=== PATIENT | female | born 1940 | race Two or more races ===

== ENCOUNTER 2025-05-07 21:11 | Inpatient (IN) | payer MEDICAID, SELFPAY ==
--- NOTE | 2025-05-07 21:15 | XR_ITS ---
Examination: PA chest single view TECHNIQUE: Upright PA chest single view Date and time: May 07, 2025 2145 hours INDICATIONS: Shortness of breath and leg edema and beginning 3 weeks ago. FINDINGS: Mild enlargement cardiac contour Moderate vascular congestion Reduced inspiratory effort The osseous structures are intact IMPRESSION: Moderate vascular congestion
--- NOTE | 2025-05-07 21:15 | EKG_ITS ---
[facility] Test Date: 2025-05-07 Pat Name: MAIDA DAVIS Department: Room: - Gender: Female [employer]: : 1940 Requested By: Nini Sanderson Order Number: [id number] Reading MD: Nini Sanderson Measurements Intervals [place] Rate: 75 P: 50 IA: 173 QRS: 58 QRSD: 74 T: -62 QT: 383 QTc: 430 Interpretive Statements SINUS RHYTHM INDETERMINATE AXIS MODERATE T-WAVE ABNORMALITY, CONSIDER ANTEROLATERAL ISCHEMIA [-0.1+ mV T-WAVE IN V3-V6] MODERATE T-WAVE ABNORMALITY, CONSIDER INFERIOR ISCHEMIA [-0.1+ mV T-WAVE IN II/aVF] No previous ECG available for comparison /store/S0/[id number].pdf
--- NOTE | 2025-05-07 21:17 | EDNOTE_ITS ---
ED SOB =RME/HPI General Chief Complaint: Shortness of Breath/Dyspnea Stated Complaint: SOB WITH EXCERTION, BLE SWELLING Time Seen by Provider: 05/07/25 21:15 Source: patient Arrival date/time: 05/07/25 21:11 Limitations: no limitations RME / HPI RME / HPI Narrative: Here today with a 3 week history of lower leg edema and excertional dyspnea. Has a history of HTN and DM. Has no fevers or chills. No chest pain or palpitations. No abdominal pain, nausea, vomiting. No near syncopal episodes. She has no history of CHF. Related Data Allergies Allergy/AdvReac Type Severity Reaction Status Date / Time No Known Allergies Allergy Verified 05/07/25 21:14 Review of Systems Review of Systems Systems Reviewed: All systems reviewed, normal except as documented ED Exam General Limitations: Present no limitations General appearance: Present alert and in no apparent distress Head Head exam: Present atraumatic Eye Eye exam: Present normal appearance, PERRL and EOMI ENT ENT exam: Present normal exam, normal oropharynx and mucous membranes moist Neck Neck exam: Present normal inspection, full ROM and trachea midline Chest Chest inspection: Present normal inspection and symmetric chest wall rise Respiratory Respiratory exam: Present normal lung sounds bilaterally; Absent respiratory distress, wheezes or accessory muscle use Cardiovascular Cardiovascular exam: Present regular rate, normal rhythm and normal heart sounds Abdominal Exam Abdominal exam: Present soft and normal bowel sounds Extremities Exam Extremities exam: Present normal inspection, full ROM and pedal edema (+2 pretibial edema ) Back Exam Back exam: Present normal inspection and full ROM Neurological Exam Neurological exam: Present alert and oriented X3 Psychiatric Psychiatric exam: Present normal affect and normal mood Skin Skin exam: Present warm, dry, intact and normal color Course Quality Measures none Orders Category Date Time Status COVID-19 Screening Questionnaire NOW Care 05/07/25 23:04 Active Decision to Admit X1 Care 05/07/25 23:04 Active EKG (ED ONLY) *Do not use* NOW Care 05/07/25 21:16 Completed IV [Insert IV] STAT Care 05/07/25 21:44 Active EKG (ED Only) Stat Exams 05/07/25 21:15 Draft XR chest 1V Stat Exams 05/07/25 21:15 Completed BNP [B-Type Natriuretic Peptide] Stat Lab 05/07/25 22:30 Completed CBC Stat Lab 05/07/25 22:30 Completed CMP [Comprehensive Metabolic Panel] Stat Lab 05/07/25 22:30 Completed Magnesium Stat Lab 05/07/25 22:30 Completed Troponin I Stat Lab 05/07/25 22:30 Completed Furosemide [Lasix Inj] Med 05/07/25 23:02 Discontinued 40 mg IVP X1 ONE Oxygen Delivery NOW RT 05/07/25 22:48 Completed Vital Signs Vital signs: Vital Signs Temperature 98.8 F 05/07/25 21:37 Pulse Rate 76 05/07/25 21:37 Respiratory Rate 22 H 05/07/25 21:37 Blood Pressure 169/91 H 05/07/25 21:37 Pulse Oximetry (%) 90 L 05/07/25 21:37 Oxygen Delivery Method Room Air 05/07/25 21:37 Shortness of Breath / Dyspnea MDM Narrative MDM Narrative:: Here today with a 3 week history of lower leg edema and excertional dyspnea. Has a history of HTN and DM. Has no fevers or chills. No chest pain or palpitations. No abdominal pain, nausea, vomiting. No near syncopal episodes. She has no history of CHF. On exam, lung tones are clear bilaterally. Patient has +2, pretibial edema bilaterally. Warm patient checked in, she was found to have oxygen level at 90% while at rest. She was given O2, 3 L, by nasal cannula and her oxygen improved to 95%. BNP is elevated at 1535 and CXR revelas vascular congestion. Lasix 40 mg and admission is requested. Discussed with attending ER physician and our hospitalist team. Patient data External records reviewed:: None Clinical information provided by:: patient and family Social determinants that could affect healthcare access:: none Patient has the following chronic illnesses:: Hypertension, diabetes How is presenting disease/condition affected by chronic disease/condition?: uneffected by Evaluation data The following diagnostics were reviewed and interpreted by me:: EKG tracing(s) (Normal sinus rhythm at [address] changes. There are inverted T waves diffusely, no prior EKG for comparison) Lab and/or radiology exams considered but not ordered:: n/a Interpretation Summary: BNP is elevated. Chest reveals vascular congestion Medications / Prescriptions Medications or Prescriptions considered but not ordered:: n/a Medication administrations:: Medication Administration History Discontinued Medications Furosemide (Furosemide Inj 10 Mg/Ml Vial 2 Ml) 40 mg IVP X1 ONE Stop: 05/07/25 23:03 Last Admin: 05/07/25 23:16 Dose: 40 mg Documented By: DELONTE see above Consultations Consultation(s) initiated? (list below): No Diagnosis Shortness of Breath Differential Diagnosis: congestive heart failure, community acquired pneumonia and asthma with exacerbation Most likely diagnosis given after review of the tests above:: chf Admission Indicated Admission indicated?: indicated Admission Request Was there a request for admission?: Yes Admission Attestation Admission request attestation: Discussed case with [] from Hospitalist service regarding admission. Discussed patients ED course, exam findings, labs, and radiology results. The Hospitalist [agrees,declines] to accept the patient for admission. Disposition Plan Disposition Plan: Admit Discharge Plan Plan Patient Disposition: Admit Acute Care w/in Hospital Patient condition on transfer: Stable Prescriptions/Referrals Referrals: Farhat Romero PA-C [Primary Care Provider] - In 1 week Problem List Clinical Impression: CHF (congestive heart failure) Patient/Caregiver Discharge Instructions Print Language: [place] Stand Alone Forms: Carmen Award Info., Patient Portal Info Letter
[2025-05-07 21:37] VITALS: BP 169/91; PULSE 76; RESP 22; TEMP 37.1; O2SAT 90
[2025-05-07 21:41] VITALS: O2SAT 95
[2025-05-07 22:38] LABS: Basophils # (Auto) 0.0 Thou/mm3 (0.0-0.2); Basophils % (Auto) 0 % (0-2.5); Eosinophils # (Auto) 0.2 Thou/mm3 (0.0-0.5); Eosinophils % (Auto) 3 % (0-10); Hematocrit 41.7 % (36.0-46.0); Hemoglobin 13.5 g/dL (12.0-16.0); Immature Granulocytes Auto 0.03 Thou/mm3 (0.00-0.00); Lymphocytes # (Auto) 1.7 Thou/mm3 (1.0-4.8); Lymphocytes % (Auto) 22 % (10-50); Mean Corpuscular HGB Conc 32.4 g/dl (31.0-37.0); Mean Corpuscular Hemoglobin 28.4 pg (25.0-35.0); Mean Corpuscular Volume 88 fL (80-100); Monocytes # (Auto) 0.7 Thou/mm3 (0.0-0.8); Monocytes % (Auto) 9 % (0-12); Neutrophils # (Auto) 5.0 Thou/mm3 (1.8-7.7); Neutrophils % (Auto) 66 % (37-80); Nucleated Red Blood Cell # 0.00 Thou/mm3 (0.00-0.00); Nucleated Red Blood Cell % 0 /100 WBC (0); Platelet Count 131 Thou/mm3 (140-440); RDW Standard Deviation 52.7 fL (36.4-46.3); Red Blood Count 4.75 Miln/mm3 (4.00-5.20); White Blood Count 7.7 Thou/mm3 (3.6-11.0)
[2025-05-07 22:41] VITALS: RESP 90; O2SAT 92
[2025-05-07 22:56] LABS: Alanine Aminotransferase 45 U/L (10-49); Albumin, Serum 3.6 gm/dL (3.4-4.8); Albumin/Globulin Ratio 1.7 (1.2-2.2); Alkaline Phosphatase 75 U/L (46-116); Anion Gap 10 (7-16); Aspartate Amino Transferase 20 U/L (0-34); B-Type Natriuretic Peptide 1535 pg/mL (0-100); BUN/Creatinine Ratio 19 Ratio (12-20); Bilirubin,Total 0.6 mg/dL (0.3-1.2); Blood Urea Nitrogen 19 mg/dL (9-23); Calcium 9.0 mg/dL (8.3-10.6); Calcium (Corrected) 9.3 mg/dL (8.5-10.1); Carbon Dioxide 27.3 mMol/L (20.0-31.0); Chloride 111 mMol/L (98-107); Creatinine (Component) 1.0 mg/dL (0.6-1.3); Globulin 2.1 gm/dL (2.3-3.5); Glucose 126 mg/dL (74-106); Magnesium 1.5 mg/dL (1.6-2.6); Osmolality,Calculated 298 (275-295); Potassium 4.1 mMol/L (3.4-5.1); Sodium 148 mMol/L (136-145); Total Protein 5.7 gm/dL (5.7-8.2); Troponin I 0.020 ng/mL (0.0-0.045); eGFR 56 See Note
[2025-05-07 23:16] VITALS: BP 182/98; PULSE 78
[2025-05-07] MEDS: FUROSEMIDE INJ 10 MG/ML VIAL 2 ML 40 MG IVP (23:16)
--- NOTE | 2025-05-07 23:21 | ECHO_ITS ---
Transthoracic Echo Report Ht (in): 60 Wt (lb): 192 Exam Location: Echo Lab Status: Emergency Technical Customer Support Specialist: Laura Covarrubias Indications: Procedure Performed: BP: 148 / 65 HR: 77 Technical Quality: Technically difficult study MEASUREMENTS (Male / Female) Normal Values 2D ECHO LV Diastolic Diameter PLAX 5.0 cm 4.2 - 5.9 / 3.9 - 5.3 cm LV Systolic Diameter PLAX 3.6 cm IVS Diastolic Thickness 0.9 cm 0.6 - 1.0 / 0.6 - 0.9 cm LVPW Diastolic Thickness 0.9 cm 0.6 - 1.0 / 0.6 - 0.9 cm LV Relative Wall Thickness 0.4 LVOT Diameter 2.1 cm Aortic Root Diameter 2.7 cm LA Volume Index 13.1 cm?/m? 16 - 28 cm?/m? Ascending Aorta Diameter 3.2 cm M-MODE Aortic Root Diameter MM 2.8 cm AV Cusp Separation MM 1.9 cm DOPPLER AV Peak Velocity 99.5 cm/s AV Peak Gradient 4.0 mmHg AV Mean Gradient 3.0 mmHg AV Velocity Time Integral 24.3 cm LVOT Peak Velocity 104.5 cm/s LVOT Peak Gradient 4.4 mmHg LVOT Velocity Time Integral 26.3 cm LVOT Cardiac Index 3567.4 cm?/min?m? AV Area Cont Eq vti 3.7 cm? AV Area Cont Eq pk 3.6 cm? MV Area PHT 2.6 cm? Mitral E Point Velocity 44.1 cm/s Mitral A Point Velocity 81.5 cm/s Mitral E to A Ratio 0.5 LV E' Lateral Velocity 6.2 cm/s Mitral E to LV E' Lateral Ratio 7.1 LV E' Septal Velocity 5.4 cm/s Mitral E to LV E' Septal Ratio 8.1 TR Peak Velocity 383.0 cm/s TR Peak Gradient 58.7 mmHg PV Peak Velocity 99.1 cm/s PV Peak Gradient 3.9 mmHg FINDINGS Left Ventricle Normal left ventricular size, wall thickness, systolic function with no obvious regional wall motion abnormalities.there is grade I diastolic dysfunction of the left ventricle (impaired relaxation pattern). The ejection fraction is visually estimated at 55 %. IVS flattened in systole and diastole consistent with RV pressure and volume overload. Right Ventricle The right ventricular size is mildy increased. The right ventricular systolic function is mildly decreased. The estimated right ventricular systolic pressure, 64 mmHg. RAP 5. Left Atrium The left atrium is normal by two-dimensional, color flow and Doppler imaging with no structural abnormalities, no thrombus formation present. Right Atrium The right atrium is normal by two-dimensional imaging, color flow and Doppler imaging with no structural abnormalities, no thrombus formation present. Atrial Septum The interatrial septum appears normal with no evidence of a shunt. Aorta The aorta is normal by two-dimensional, color flow and Doppler interrogation. Mitral Valve The mitral valve is normal by two-dimensional, color flow and Doppler interrogation. There is no significant mitral valve regurgitation, stenosis or prolapse. Aortic Valve The aortic valve is trileaflet and normal by two-dimensional, color flow and Doppler interrogation. There is no significant aortic valve regurgitation. Tricuspid Valve The tricuspid valve is normal by two-dimensional, color flow and Doppler interrogation. There is moderate tricuspid regurgitation. Pulmonic Valve Mild pulmonic valve regurgitation. Vessels The pulmonary artery appears normal. The inferior vena cava pulmonary and hepatic veins appear normal. Pericardium There is a tiny, hemodynamically insignificant pericardial effusion. CONCLUSIONS Indication: CHF Normal left ventricular size and wall thickness. Grade I diastolic dysfunction. Estimated at 60-65%. IVS flattened in systole and diastole in short axis consistent with RV pressure and volume overload. Mildly dilated RA and RV. Mildly decreased and low normal RV function. RVSP moderate to severely elevated around 70 to 75 mmHg. Moderate TR Mild aortic valve sclerosis without stenosis. Mild PI. Trace MR. Mild MAC. IVC dilated. Trace to small pericardial effusion without any evidence of cardiac tamponade Abdirizak Mora (Electronically Signed) Final Date: 09 May 2025 19:52
--- NOTE | 2025-05-07 23:23 | ESHP_ITS ---
Documentation for date of: 05/07/25 HPI History of Present Illness Chief complaint: Dyspnea on exertion History of present illness: 84-year-old female with past medical history of hypertension presenting to the ED on 05/07 with increased shortness of breath and dyspnea on exertion. Patient's daughter is bedside and provided some history. Patient apparently has been having difficulty ambulating for 3 to 4 weeks secondary to increased shortness of breath. She has not seen a PCP for this concern. Patient otherwise denies having any concerning cardiac symptoms such as chest pain/tightness, palpitations, orthopnea, paroxysmal nocturnal dyspnea but she does have lower extremity edema. Medical history: As stated above Surgical history: Denies Allergies: NKDA Medications: Pending med rec Family history: Denies any pertinent family history Social history: Patient lives in [place] with daughter, denies any alcohol, tobacco or illicit drug use, ambulates normally with a walker ROS: All 12 systems assessed and the patient denies unless otherwise stated in HPI In the ED, patient presented hypertensive 169/91, heart rate of 76, respiratory rate of 22, afebrile satting 90 on room air initially but then requiring 2 L supplemental oxygen to sat 92%. Pertinent lab findings included WBC of 7.7, hemoglobin 13.5, sodium 148, chloride 111, magnesium 1.5, glucose 126, AST 20, ALT 45, alk phos 75, troponin 0.020, BNP 1535. Chest x-ray showed mild enlargement of the cardiac contour with moderate vascular congestion and EKG showed normal sinus rhythm with some T wave inversions noted on anterior and septal leads. Patient will be admitted for new congestive heart failure and will be treated with IV diuretics and echo cardiogram. Exam Vital Signs Temp Pulse Resp BP Pulse Ox O2 Del Method O2 Flow Rate 98.8 F 78 22 H 182/98 H 92 L Nasal Cannula 2 05/07/25 21:37 05/07/25 23:16 05/07/25 21:37 05/07/25 23:16 05/07/25 22:41 05/07/25 21:41 05/07/25 22:41 Narrative Exam Physical Exam: GENERAL: Awake, answering questions appropriately in [place], appears stated age, morbidly obese HEENT: NC/AT. Moist mucosa. PERRLA/EOMI. CARDIO: Heart RRR, Grade II/ systolic ejection murmur, no JVD. PULM: No coughing or visible SOB. Lungs CTA B/L. GI: Abdomen soft, mildly tender to palpation in epigastric region, no rigidity or guarding. [place] apparent SKIN/MSK/EXT: +2 pitting edema localized to bilateral feet. No wounds/discoloration/rashes//amputations noted. +Pedal pulses present B/L. NEURO: Oriented x3, Moves extremities x4, no focal neurologic deficits noted Results: Labs 05/07/25 22:30 05/07/25 22:30 Labs: Short CBC 05/07/25 Range/Units 22:30 WBC 7.7 (3.6-11.0) Thou/mm3 Hgb 13.5 (12.0-16.0) g/dL Hct 41.7 (36.0-46.0) % Plt Count 131 L (140-440) Thou/mm3 BMP 05/07/25 22:30 Sodium 148 H Potassium 4.1 Chloride 111 H Carbon Dioxide 27.3 BUN 19 Creatinine 1.0 Glucose 126 H Calcium 9.0 Cardiac Enzymes 05/07/25 Range/Units 22:30 Troponin I 0.020 (0.0-0.045) ng/mL Liver Function 05/07/25 Range/Units 22:30 Total Bilirubin 0.6 (0.3-1.2) mg/dL AST 20 (0-34) U/L ALT 45 (10-49) U/L Alkaline Phosphatase 75 (46-116) U/L Albumin 3.6 (3.4-4.8) gm/dL Quality Measures Quality Measures none Advance care planning discussed with:: patient and child (Daughter) Medications Home Medications and Allergies Allergies Allergy/AdvReac Type Severity Reaction Status Date / Time No Known Allergies Allergy Verified 05/07/25 21:14 Visit Medications Acetaminophen (Acetaminophen 325 Mg Tablet) 650 mg PO Q6H PRN PRN Reason: PAIN SCALE 1-3 (mild Stop: 06/06/25 23:18 Furosemide (Furosemide Inj 10 Mg/Ml 4ml Vial) 40 mg IVP BIDD MARCO A Stop: 06/07/25 05:59 Heparin Sodium (Porcine) (Heparin Sod Inj 5000 Unit/Ml Vial) 5,000 unit SC Q12HR MARCO A Stop: 05/22/25 08:59 Magnesium Sulfate (Magnesium Sulfate Ivpb) 4 gm in 50 mls @ 12.5 mls/hr IV X1 ONE Stop: 05/08/25 03:21 Ondansetron HCl (Ondansetron Inj 2 Mg/Ml Inj 2 Ml) 4 mg IVP Q6H PRN; Protocol PRN Reason: NAUSEA OR VOMITING Stop: 06/06/25 23:18 Discontinued Medications Furosemide (Furosemide Inj 10 Mg/Ml Vial 2 Ml) 40 mg IVP X1 ONE Stop: 05/07/25 23:03 Last Admin: 05/07/25 23:16 Dose: 40 mg Assessment & Plan Plan 84-year-old female with past medical history of hypertension presenting to the ED on 05/07 with increased shortness of breath and dyspnea on exertion will be admitted for new congestive heart failure and will be treated with IV diuretics and echo cardiogram. #Acute CHF exacerbation #Possible Aortic Stenosis [place] heart association class III As noted above, patient's been having 3 to 4 weeks of dyspnea on exertion and shortness of breath In the ED patient required 2 L of supplemental oxygen to saturate around 92-93% On examination, patient has a grade 2 out of 6 systolic ejection murmur with +2 pitting edema on bilateral feet Troponin within normal limits, BNP elevated at 1535 Chest x-ray shows moderate vascular congestion with enlargement of the cardiac contour Plan: IV Lasix 40 daily Strict I's and O's Fluid restriction 1500 mL Daily weight Ordered A1c, lipid panel, TSH Keep potassium greater than 4 and magnesium greater than 2 Echo ordered Patient could benefit from close follow-up and cardiology consultation either inpatient versus outpatient #Hypertension #Hypertensive urgency Patient has history of high blood pressure on antihypertensive, pending med rec Blood pressures have been on the elevated side 169/91, currently 182/98 Plan: IV diuresis as above Ordered IV hydralazine 10 mg x 1 Restart home medications when appropriate #Hypernatremia, Hypervolemic #Hypomagnesemia Hyponatremia in the setting of hypervolemia versus euvolemia; differentials include exogenous saline, mineralocorticoid excess versus potentially diabetes insipidus? Electrolyte abnormalities noted during admission Plan: Replete as needed Follow-up with morning labs Consider urine sodium and urine osmolality to workup #Morbid obesity Chronic medical condition Plan: Follow-up outpatient with PCP Health Maintenance: Lines: PIV Diet: Cardiac Bowel: Senna as needed GI prophylaxis: Not needed DVT prophylaxis: Heparin subcu Dispo: IV diuretics for acute CHF exacerbation, echo ordered Code: Full Patient seen and assessed with attending Dr. Alexandr Duran DO PGY-2 Internal Medicine - GME Attending Provider Attestation/Addendum After examination of the patient and review of the clinical data I feel that this patient needs admission to the hospital for further treatment/evaluation. I have discussed and was present for the essential components of the history, physical examination, diagnosis, and treatment plan with the resident. I agree with the patient's care as documented by the resident and amended herein by me. Zoran Strange DO. Although this document has been carefully reviewed, there may still be some phonetic and other typographical errors. These errors are purely grammatical due to imperfections in the software program and should not be construed in any way to compromise the substance of the patient's medical care during this visit. Patient seen and evaluated in the ED. Patient is an 84-year-old female with a reported past medical history of hypertension and type 2 diabetes not on insulin. She presented to the ED for shortness of breath and 3 weeks of lower extremity edema and dyspnea. Patient normally ambulates with a walker however has been mostly immobile with the start of her symptoms. She denies any chest pain orthopnea no nocturnal dyspnea. Patient was accompanied by her daughter who was able to assist in some of the history however we are unclear on what medication she is takes apparently some unknown hypertensive agent. In the ED, initial BP 169/91 mmHg, respiratory rate 22, the patient was afebrile and on nasal cannula 2 L with an SpO2 of 91%. Patient's BP did increased with an SBP in the 180s, hydralazine was given. CBC largely unremarkable with exception of platelet count of 131, magnesium was 1.5 and BNP was 1535. Sodium slightly elevated at 148 and had a serum osmolality of 298. Patient subsequently admitted to telemetry for possible new onset heart failure and hypertensive urgency. The patient's edema was largely pedal, she appeared relatively euvolemic, her symptoms may be due to pressure overload and may have possible intravascular depletion. Will perform a bedside ultrasound and reassess. Patient was given a dose of Lasix in the ED however the patient may actually need fluids, will attempt ultrasound as stated above. She does have vascular congestion on chest x-ray. Will also work on controlling her blood pressure with as needed hydralazine for now and possibly add an BUD/ARB. Will replete electrolytes as needed and an echo has been ordered.
[2025-05-07] MEDS: Magnesium Sulfate 4 GM Ivpb 4 GM/50 ML BAG IV (23:28)
[2025-05-07 23:47] VITALS: BP 214/129; PULSE 79
[2025-05-07] MEDS: hydrALAZINE INJ 20 MG/ML VIAL 10 MG IVP (23:47)
[2025-05-07 23:52] VITALS: BP 140/79
[2025-05-08] VITALS (11 sets, daily range): BP systolic 138–173; BP diastolic 65–102; PULSE 64–98; RESP 18–26; TEMP 36.4–37; O2SAT 90–95
--- NOTE | 2025-05-08 01:41 | PC.NURSE ---
assessed patient's chart for main nurse Michael CARRINGTON.
--- NOTE | 2025-05-08 04:48 | PC.NURSE ---
Addendum entered by Michael Mckeon RN 05/08/25 04:57: Dr. Duran has not put order for hydralazine. Original Note: Pt's blood pressure 173/97 with a pulse of 73. RN called Dr. Duran if he wanted to order another dose of hydralazine. RN told Dr. Duran that pt got a dose of hydralazine in the ER. Dr. Duran said he will put in an order for another dose of hydralazine.
[2025-05-08 06:20] LABS: Basophils # (Auto) 0.0 Thou/mm3 (0.0-0.2); Basophils % (Auto) 0 % (0-2.5); Eosinophils # (Auto) 0.2 Thou/mm3 (0.0-0.5); Eosinophils % (Auto) 2 % (0-10); Hematocrit 45.6 % (36.0-46.0); Hemoglobin 14.7 g/dL (12.0-16.0); Immature Granulocytes Auto 0.05 Thou/mm3 (0.00-0.00); Lymphocytes # (Auto) 1.4 Thou/mm3 (1.0-4.8); Lymphocytes % (Auto) 15 % (10-50); Mean Corpuscular HGB Conc 32.2 g/dl (31.0-37.0); Mean Corpuscular Hemoglobin 29.1 pg (25.0-35.0); Mean Corpuscular Volume 90 fL (80-100); Monocytes # (Auto) 0.9 Thou/mm3 (0.0-0.8); Monocytes % (Auto) 9 % (0-12); Neutrophils # (Auto) 7.2 Thou/mm3 (1.8-7.7); Neutrophils % (Auto) 74 % (37-80); Nucleated Red Blood Cell # 0.00 Thou/mm3 (0.00-0.00); Nucleated Red Blood Cell % 0 /100 WBC (0); Platelet Count 139 Thou/mm3 (140-440); RDW Standard Deviation 53.5 fL (36.4-46.3); Red Blood Count 5.06 Miln/mm3 (4.00-5.20); White Blood Count 9.8 Thou/mm3 (3.6-11.0)
[2025-05-08 06:50] LABS: Glucose Estimated Average 134 mg/dL (80-131); Hemoglobin A1C 6.3 % Hgb (4.8-6.0)
[2025-05-08 06:55] LABS: Alanine Aminotransferase 44 U/L (10-49); Albumin, Serum 3.9 gm/dL (3.4-4.8); Albumin/Globulin Ratio 1.7 (1.2-2.2); Alkaline Phosphatase 70 U/L (46-116); Anion Gap 12 (7-16); Aspartate Amino Transferase 22 U/L (0-34); BUN/Creatinine Ratio 16 Ratio (12-20); Bilirubin,Total 0.9 mg/dL (0.3-1.2); Blood Urea Nitrogen 14 mg/dL (9-23); Calcium 9.1 mg/dL (8.3-10.6); Calcium (Corrected) 9.2 mg/dL (8.5-10.1); Carbon Dioxide 28.9 mMol/L (20.0-31.0); Cardiac Risk Estimate 3.0 RATIO (3.7-5.6); Chloride 106 mMol/L (98-107); Cholesterol 150 mg/dL (132-200); Creatinine (Component) 0.9 mg/dL (0.6-1.3); Globulin 2.3 gm/dL (2.3-3.5); Glucose 136 mg/dL (74-106); HDL Cholesterol 50 mg/dL (40-60); LDL Cholesterol,Calculated 82 mg/dL (0-130); Osmolality,Calculated 294 (275-295); Potassium 3.5 mMol/L (3.4-5.1); Sodium 147 mMol/L (136-145); Thyroid Stimulating Hormone 9.30 uIU/mL (0.55-4.78); Total Protein 6.2 gm/dL (5.7-8.2); Triglycerides 88 mg/dL (30-150); eGFR > 60 See Note
[2025-05-08] MEDS: POTASSIUM CHLORIDE 10% 20 MEQ/15 ML UDC 40 MEQ PO (08:17)
[2025-05-08] MEDS: FUROSEMIDE INJ 10 MG/ML 4ML VIAL 40 MG IVP (08:17)
[2025-05-08] MEDS: HEPARIN SOD INJ 5000 UNIT/ML VIAL SC ×2 (08:17→20:55)
[2025-05-08] MEDS: LOSARTAN POTASSIUM 25 MG TABLET 50 MG PO (09:34)
--- NOTE | 2025-05-08 09:44 | PC.SS ---
Follow up note: On IV Lasix. New CHF and pending ECHO.
[2025-05-08 09:53] LABS: Free T4 (Free Thyroxine) 1.00 ng/dL (0.89-1.76); Magnesium 2.0 mg/dL (1.6-2.6)
--- NOTE | 2025-05-08 10:35 | ESPR_ITS ---
<Statement entered by Tamika Alanis MD - 05/15/25 14:18> I reviewed above note and agree with findings and plans. I have also personally examined the patient with medicine team and went over assessment and plan with medical team including improvement intern and resident physician. Documentation for date of: 05/08/25 Senior resident attestation: Patient evaluated and examined at the bedside, plan of care discussed with rest of the team including my attending physician, except as noted. Pt Presented with acute hypoxic respiratory failure, dyspnea on exertion, noted to have elevated BNP and vascular congestion on chest x-ray, concern for new onset congestive heart failure, echocardiogram ordered, started on diuretics, supplemental oxygen as needed, also noted to have hypertensive urgency, currently blood pressure improving. Possible subclinical hypothyroidism as TSH is markedly elevated free T4 within normal limits. Patient will need repeat thyroid function test in 4 to 8 weeks on outpatient basis. Quresh PGY3 Subjective Subjective Interval history: Patient seen and examined at bedside this AM. Taiwanese speaking, per diem interpreter services used. Denied chest pain and reported improvement in shortness of breath. Denied any recent illnesses during the past month. Labs and vitals were reviewed. -760 mL, continue diuresis as patient is still requiring oxygen, currently on 2L NC. Patient does not use oxygen at home. TSH elevated at 9.3, pending free T4. No history of hypothyroidism. Will continue diuresing with IV Lasix, does not appear to be fluid overloaded on exam. Review of systems otherwise negative except what is mentioned above. Exam Vital Signs Temp Pulse Resp BP Pulse Ox O2 Del Method O2 Flow Rate 98 F 75 24 H 148/65 H 92 L Nasal Cannula 2 05/08/25 04:00 05/08/25 09:34 05/08/25 04:00 05/08/25 09:34 05/08/25 04:00 05/08/25 04:00 05/08/25 04:00 Narrative Exam Physical Exam General: Awake and in no acute distress. Conversational and non-toxic appearing. HEENT: Normocephalic, atraumatic, mucous membranes moist. Heart: Regular rate and rhythm, normal S1 and S2, grade II/IV systolic murmur. No JVD. Lungs: Clear to auscultation with no wheezing or crackles. Abdomen: Soft, nondistended, nontender, positive bowel sounds. No guarding or rebound tenderness. Neurologic: Alert and oriented x3, no gross neurological deficit, and patient able to move all 4 extremities. Extremities: 1+ pitting lower extremity edema bilaterally. Skin: No rash or ecchymoses. Objective Labs 05/08/25 05:51 05/08/25 05:51 Labs: Laboratory Results - last 24 hr 05/07/25 05/08/25 22:30 05:51 WBC 7.7 9.8 RBC 4.75 5.06 Hgb 13.5 14.7 Hct 41.7 45.6 MCV 88 90 MCH 28.4 29.1 MCHC 32.4 32.2 RDW Std Deviation 52.7 H 53.5 H Plt Count 131 L 139 L Neut % (Auto) 66 74 Lymph % (Auto) 22 15 Bennett % (Auto) 9 9 Eos % (Auto) 3 2 Baso % (Auto) 0 0 Neut # (Auto) 5.0 7.2 Lymph # (Auto) 1.7 1.4 Bennett # (Auto) 0.7 0.9 H Eos # (Auto) 0.2 0.2 Baso # (Auto) 0.0 0.0 Immature Gran # (Auto) 0.03 H 0.05 H Absolute Nucleated RBC 0.00 0.00 Immature Gran % 0 1 H Nucleated RBC % 0 0 Sodium 148 H 147 H Potassium 4.1 3.5 D Chloride 111 H 106 Carbon Dioxide 27.3 28.9 Anion Gap 10 12 BUN 19 14 Creatinine 1.0 0.9 Estim Creat Clear Calc Not Performed. Not Performed. eGFR 56 L > 60 BUN/Creatinine Ratio 19 16 Glucose [address] Glu mg/dL 134 H Hemoglobin A1c 6.3 H Calculated Osmolality 298 H 294 Calcium 9.0 9.1 Corrected Calcium 9.3 9.2 Magnesium 1.5 L 2.0 Total Bilirubin 0.6 0.9 AST 20 22 ALT 45 44 Alkaline Phosphatase 75 70 Troponin I 0.020 B-Natriuretic Peptide 1535 H* Total Protein 5.7 6.2 Albumin 3.6 3.9 Globulin 2.1 L 2.3 Albumin/Globulin Ratio 1.7 1.7 Triglycerides 88 Cholesterol 150 LDL Cholesterol, Calc 82 HDL Cholesterol 50 Cholesterol/HDL Ratio 3.0 L TSH 9.30 H Free T4 1.00 Quality Measures Quality Measures none Advance care planning discussed with:: patient Assessment & Plan Assessment Current Active Medications: Generic Name Dose Route Start Last Admin Trade Name Golden PRN Reason Stop Dose Admin Acetaminophen 650 mg 05/07/25 23:19 Acetaminophen 325 Mg Tablet PO 06/06/25 23:18 Q6H PRN PAIN SCALE 1-3 (mild Furosemide 40 mg 05/08/25 09:00 05/08/25 08:17 Furosemide Inj 10 Mg/Ml 4ml Vial IVP 06/07/25 08:59 40 mg DAILY MARCO A Administration Heparin Sodium (Porcine) 5,000 unit 05/08/25 09:00 05/08/25 08:17 Heparin Sod Inj 5000 Unit/Ml Vial SC 05/22/25 08:59 5,000 unit Q12HR MARCO A Administration Losartan Potassium 50 mg 05/08/25 09:00 05/08/25 09:34 Losartan Potassium 25 Mg Tablet PO 06/07/25 08:59 50 mg QDAY MARCO A Administration Ondansetron HCl 4 mg 05/07/25 23:19 Ondansetron Inj 2 Mg/Ml Inj 2 Ml IVP 06/06/25 23:18 Q6H PRN NAUSEA OR VOMITING Protocol Plan Patient is a 84-year-old female with past medical history of hypertension presenting to the ED on 05/07 with increased shortness of breath and dyspnea on exertion, admitted for new congestive heart failure and will be treated with IV diuretics, pending echo. #Acute hypoxic respiratory failure 2/2 acute CHF exacerbation [place] heart association class III. Worsening shortness of breath and dyspnea on exertion on presentation, required 2L supplemental oxygen in ED. On examination, patient has a grade 2 out of 6 systolic ejection murmur (concern for possible aortic stenosis) with +2 pitting lower extremity edema bilaterally. Troponin within normal limits, BNP elevated at 1535. Chest x-ray 05/07 shows moderate vascular congestion with enlargement of the cardiac contour. 05/08: Continues to be on 2L. Lungs clear but still has mild lower extremity edema bilaterally. Plan: - pending echo - Continue IV Lasix 40 daily - Strict I's and O's - Fluid restriction 1500 mL - Daily weights - K >4, Mg >2 - recommend outpatient cardiology follow up #Hypertension #Hypertensive urgency History of hypertension, on losartan and carvedilol, pending med rec. Does not have resident caregiver. Plan: - Continue IV diuresis as above ?Restart home medications when appropriate #Hypernatremia, Hypervolemic #Hypomagnesemia - resolved Hypernatremia in the setting of hypervolemia; differentials include exogenous saline, mineralocorticoid excess versus potentially diabetes insipidus Electrolyte abnormalities noted during admission Plan: ?Replete as needed ?Consider urine sodium and urine osmolality to workup #Subclinical hypothyroidism TSH elevated at 9.3. Free T4 within normal limits. No history of hypothyroidism per patient. - Stable, consider follow up outpatient with PCP to monitor #Morbid obesity Chronic medical condition Plan: ?Follow-up outpatient with PCP Health Maintenance: Lines: PIV Diet: Cardiac Bowel: Senna as needed GI prophylaxis: Not needed DVT prophylaxis: Heparin subcu Dispo: IV diuretics for AHRF 2/2 acute CHF exacerbation, echo pending Code: Full Patient plan of care was discussed with the senior resident, Dr. Linares, and attending physician, Dr. Alanis. Kajal Guevara, PGY-1
[2025-05-09] VITALS (10 sets, daily range): BP systolic 129–148; BP diastolic 80–92; PULSE 83–96; RESP 16–27; TEMP 36.1–36.4; O2SAT 91–95
[2025-05-09 06:17] LABS: Basophils # (Auto) 0.0 Thou/mm3 (0.0-0.2); Basophils % (Auto) 0 % (0-2.5); Eosinophils # (Auto) 0.2 Thou/mm3 (0.0-0.5); Eosinophils % (Auto) 2 % (0-10); Hematocrit 45.3 % (36.0-46.0); Hemoglobin 14.8 g/dL (12.0-16.0); Immature Granulocytes Auto 0.03 Thou/mm3 (0.00-0.00); Lymphocytes # (Auto) 1.5 Thou/mm3 (1.0-4.8); Lymphocytes % (Auto) 17 % (10-50); Mean Corpuscular HGB Conc 32.7 g/dl (31.0-37.0); Mean Corpuscular Hemoglobin 28.8 pg (25.0-35.0); Mean Corpuscular Volume 88 fL (80-100); Monocytes # (Auto) 0.7 Thou/mm3 (0.0-0.8); Monocytes % (Auto) 8 % (0-12); Neutrophils # (Auto) 6.3 Thou/mm3 (1.8-7.7); Neutrophils % (Auto) 72 % (37-80); Nucleated Red Blood Cell # 0.00 Thou/mm3 (0.00-0.00); Nucleated Red Blood Cell % 0 /100 WBC (0); Platelet Count 148 Thou/mm3 (140-440); RDW Standard Deviation 52.3 fL (36.4-46.3); Red Blood Count 5.14 Miln/mm3 (4.00-5.20); White Blood Count 8.7 Thou/mm3 (3.6-11.0)
[2025-05-09 06:23] LABS: Alanine Aminotransferase 31 U/L (10-49); Albumin, Serum 3.5 gm/dL (3.4-4.8); Albumin/Globulin Ratio 1.7 (1.2-2.2); Alkaline Phosphatase 65 U/L (46-116); Anion Gap 9 (7-16); Aspartate Amino Transferase 16 U/L (0-34); BUN/Creatinine Ratio 20 Ratio (12-20); Bilirubin,Total 1.8 mg/dL (0.3-1.2); Blood Urea Nitrogen 16 mg/dL (9-23); Calcium 8.6 mg/dL (8.3-10.6); Calcium (Corrected) 9.0 mg/dL (8.5-10.1); Carbon Dioxide 29.1 mMol/L (20.0-31.0); Chloride 106 mMol/L (98-107); Creatinine (Component) 0.8 mg/dL (0.6-1.3); Globulin 2.1 gm/dL (2.3-3.5); Glucose 122 mg/dL (74-106); Magnesium 1.6 mg/dL (1.6-2.6); Osmolality,Calculated 289 (275-295); Phosphorous 3.0 mg/dL (2.4-5.1); Potassium 3.9 mMol/L (3.4-5.1); Sodium 144 mMol/L (136-145); Total Protein 5.6 gm/dL (5.7-8.2); eGFR > 60 See Note
[2025-05-09] MEDS: LOSARTAN POTASSIUM 25 MG TABLET 50 MG PO (09:31)
[2025-05-09] MEDS: FUROSEMIDE INJ 10 MG/ML 4ML VIAL 40 MG IVP (09:32)
[2025-05-09] MEDS: HEPARIN SOD INJ 5000 UNIT/ML VIAL SC ×2 (09:32→20:28)
[2025-05-09] MEDS: Magnesium Sulfate 2 GM Ivpb 2 GM/50 ML BAG IV (09:33)
--- NOTE | 2025-05-09 10:20 | PC.NURSE ---
oxygen test pt.on 2.5L O2 nasal cannula pt room air at rest 86% walking with 2.5L O2 91% walking without O2 85%
[2025-05-09] MEDS: Magnesium Sulfate 4 GM Ivpb 4 GM/50 ML BAG IV (10:54)
--- NOTE | 2025-05-09 11:23 | PD.RESCONSUL ---
HPI Data of Consult Requesting Physician: Tamika Alanis MD Admitting Provider: Jorje Strange DO Attending Provider: Tamika Alanis MD Primary Care Provider: Farhat Romero PA-C Consult Narrative History of present illness: The patient is not 84-year-old female with significant past medical history of hypertension presented to ED on 05/07/2025 with chief complaint of worsening of SOB and bilateral leg edema. The patient reported that she started having mild SOB 4 weeks ago, associated with mild bilateral lower limb edema. However, she did not see her PCP for this. After having severe SOB, she thought of coming to the ED. She denied any extensive past cardiac history except for hypertension. She admitted orthopnea, but she denied any lightheadedness, headache, chest pain, palpitations, PND, fever or chills, nausea or vomiting. She was never diagnosed with any heart failure or rhythm disorder. She was saturating 90% on room air initially, and was placed on 3 L NC with improvement of oxygen saturation to 94 to 95%. During my evaluation, her vitals were stable with blood pressure in 130s/80s, pulse rate in the 80s, saturating 95% on 3 L of NC. CBC WNL, chemistry panel revealed potassium 3.9, bicarb 29.1, BUN 16, creatinine 0.8, blood sugar 122, magnesium 1.6, total bilirubin 1.8, albumin 3.5. EKG revealed sinus rhythm, with right ventricular hypertrophy, with pattern consistent with pulmonary disease. QTc was 411. CXR revealed moderate vascular congestions. PMH: As mentioned above Surgical history: Denies any surgeries Family history: Denies any significant cardiac history in the family Social history: Lives in [place] with daughter, denies alcohol, tobacco or illicit drug use, ambulates normally with walker at baseline Medications: Carvedilol 12.5 Mg twice daily, famotidine 20 Mg daily, losartan 50 Mg daily Allergies: No known allergies Cardiology consultation was done for concern regarding acute exacerbation of new onset CHF. cc:: cc: Tamika Alanis MD Review of Systems Review of Systems Systems Reviewed: All systems reviewed, normal except as documented Exam Vital Signs Temp Pulse Resp BP Pulse Ox O2 Del Method O2 Flow Rate 97.0 F 91 21 H 137/89 H 94 L Nasal Cannula 3 05/09/25 08:00 05/09/25 09:32 05/09/25 08:00 05/09/25 09:32 05/09/25 08:00 05/09/25 08:00 05/09/25 08:00 Narrative Exam General: Elderly, obese, cooperative female, no acute distress, Alert and Oriented x 3 HEENT: Moist mucous membranes, oropharynx clear Neck: Supple, No masses, No JVD CVS: S1S2 Regular rate and rhythm, No murmurs, rubs or gallops Lungs: Bibasilar crackles appreciated Abd: Soft, NT/ND, +BS, no organomegaly Ext: No edema, warm and well perfused Skin: No rash Psych: Appropriate mood and affect Results Labs 05/09/25 04:44 05/09/25 04:44 Labs: Short CBC 05/09/25 Range/Units 04:44 WBC 8.7 (3.6-11.0) Thou/mm3 Hgb 14.8 (12.0-16.0) g/dL Hct 45.3 (36.0-46.0) % Plt Count 148 (140-440) Thou/mm3 BMP 05/09/25 04:44 Sodium 144 Potassium 3.9 Chloride 106 Carbon Dioxide 29.1 BUN 16 Creatinine 0.8 Glucose 122 H Calcium 8.6 Liver Function 05/09/25 Range/Units 04:44 Total Bilirubin 1.8 H D (0.3-1.2) mg/dL AST 16 (0-34) U/L ALT 31 (10-49) U/L Alkaline Phosphatase 65 (46-116) U/L Albumin 3.5 (3.4-4.8) gm/dL Quality Measures Quality Measures none Advance care planning discussed with:: patient and child Medications Home Medications and Allergies Home Medications ?Medication ?Instructions ?Recorded ?Confirmed ?Type carvedilol 12.5 mg tablet 12.5 mg PO BID 05/08/25 05/08/25 History famotidine 20 mg tablet 20 mg PO QDAY 05/08/25 05/08/25 History losartan 50 mg tablet 50 mg PO QDAY 05/08/25 05/08/25 History Allergies Allergy/AdvReac Type Severity Reaction Status Date / Time No Known Allergies Allergy Verified 05/07/25 21:14 Visit Medications Acetaminophen (Acetaminophen 325 Mg Tablet) 650 mg PO Q6H PRN PRN Reason: PAIN SCALE 1-3 (mild Stop: 06/06/25 23:18 Furosemide (Furosemide Inj 10 Mg/Ml 4ml Vial) 40 mg IVP QDAY [facility] Stop: 06/08/25 08:59 Last Admin: 05/09/25 09:32 Dose: 40 mg Heparin Sodium (Porcine) (Heparin Sod Inj 5000 Unit/Ml Vial) 5,000 unit SC Q12HR [facility] Stop: 05/22/25 08:59 Last Admin: 05/09/25 09:32 Dose: 5,000 unit Magnesium Sulfate (Magnesium Sulfate Ivpb) 4 gm in 50 mls @ 12.5 mls/hr IV X1 ONE Stop: 05/09/25 14:39 Last Admin: 05/09/25 10:54 Dose: 12.5 mls/hr Losartan Potassium (Losartan Potassium 25 Mg Tablet) 50 mg PO QDAY [facility] Stop: 06/07/25 08:59 Last Admin: 05/09/25 09:31 Dose: 50 mg Ondansetron HCl (Ondansetron Inj 2 Mg/Ml Inj 2 Ml) 4 mg IVP Q6H PRN; Protocol PRN Reason: NAUSEA OR VOMITING Stop: 06/06/25 23:18 Discontinued Medications Furosemide (Furosemide Inj 10 Mg/Ml Vial 2 Ml) 40 mg IVP X1 ONE Stop: 05/07/25 23:03 Last Admin: 05/07/25 23:16 Dose: 40 mg Furosemide (Furosemide Inj 10 Mg/Ml 4ml Vial) 40 mg IVP BIDD [facility] Stop: 06/07/25 05:59 Furosemide (Furosemide Inj 10 Mg/Ml 4ml Vial) 40 mg IVP DAILY [facility] Stop: 06/07/25 08:59 Last Admin: 05/08/25 08:17 Dose: 40 mg Furosemide (Furosemide Inj 10 Mg/Ml 4ml Vial) 40 mg IVP BIDD [facility] Stop: 06/07/25 20:59 Hydralazine HCl (Hydralazine Inj 20 Mg/Ml Vial) 10 mg IVP X1 ONE Stop: 05/07/25 23:37 Last Admin: 05/07/25 23:47 Dose: 10 mg Magnesium Sulfate (Magnesium Sulfate Ivpb) 4 gm in 50 mls @ 12.5 mls/hr IV X1 ONE Stop: 05/08/25 03:21 Last Admin: 05/07/25 23:28 Dose: 12.5 mls/hr Magnesium Sulfate (Magnesium Sulfate Ivpb) 2 gm in 50 mls @ 25 mls/hr IV X1 ONE Stop: 05/09/25 10:36 Last Admin: 05/09/25 09:33 Dose: 25 mls/hr Potassium Chloride (Potassium Chloride 10% 20 Meq/15 Ml Udc) 40 meq PO X1 ONE Stop: 05/08/25 07:09 Last Admin: 05/08/25 08:17 Dose: 40 meq Potassium Chloride (Potassium Chloride 20 Meq Tabcr) 20 meq PO X1 ONE Stop: 05/09/25 08:38 Last Admin: 05/09/25 09:32 Dose: 20 meq Assessment & Plan Plan The patient is not 84-year-old female with significant past medical history of hypertension presented to ED on 05/07/2025 with chief complaint of worsening of SOB and bilateral leg edema. The patient reported that she started having mild SOB 4 weeks ago, associated with mild bilateral lower limb edema. Cardiology consultation was done for concern regarding acute exacerbation of new onset CHF. # New onset CHF exacerbation- Patient presented with chief complaint of worsening of SOB, and bilateral lower limb edema for the past 4 weeks. Reported orthopnea Physical exam was significant for bibasilar crackles, including 2+ lower limb pitting edema during presentation - Continue the patient with Lasix 40 Mg IV daily - Strict ins and outs - Low-sodium diet - Fluid restriction 1500 cc/day incorporated in diet - TTE ordered, pending results - Maintain potassium and magnesium greater than 4 and 2 respectively all the time #Hypertension Continue with home losartan 50 Mg daily Thank you for cardiology consultation. We appreciate the opportunity to participate in this patient care. Will continue to follow-up on this patient. The patient's management plan was discussed with my attending physician MD Milton Phan MD, PGY3 Attending Provider Attestation/Addendum I have personally seen and examined the patient separately on the above date of service and discussed the plan of care with the resident. I reviewed the resident Dr. Milton Yanez consultation progress note and agree with the resident findings and plan in the note above and have also edited the documentation to reflect my findings and plan. 84-year-old female with a past medical history of essential hypertension, obesity, GERD or acidity presented to the emergency department for further evaluation of shortness of breath at rest as well as exertion along with bilateral significant leg swelling as well as orthopnea. Patient has been experiencing the symptoms for the past to 3 to 4 weeks and decided come to the emergency department for further evaluation. Patient does follow-up with [facility] primary care [facility]. Lives with the daughter at home and denies any kind of smoking alcohol or drug abuse. Ambulates with a walker. Denies major heart disease in the family. EKG in the emergency department showed normal sinus rhythm with possible right ventricular hypertrophy and pulmonary disease pattern. Chest x-ray shows moderate vascular congestion along with cardiomegaly. Labs reviewed and showed normal CBC, BMP. Total bilirubin mildly elevated at 1.8. Albumin was 3.5. Rest of the LFTs normal. Magnesium was low at 1.6. Potassium was 3.9. A1c was 6.3, BNP was 1535, total cholesterol 150, TG 88, HDL 50, LDL 82, TSH at 9.3 mildly elevated and free T4 at 1.0. Assessment and plan 1. Acute hypoxic respiratory failure mostly secondary to CHF exacerbation 2. Acute CHF exacerbation-systolic versus diastolic, LV versus RV-pending echo 3. Uncontrolled hypertension and hypertensive urgency on admission 4. New onset diabetes mellitus with an A1c of 6.3 5. Subclinical hypothyroidism 6. Morbid obesity 7. Osteoarthritis 8. Electrolyte abnormalities-hypomagnesemia Patient presentation is classic for CHF exacerbation based on the chest x-ray, elevated BNP, her symptoms as noted above. Patient started on oxygen via nasal cannula and started on IV Lasix and recommend to continue IV Lasix 40 mg once daily for now. Continue to monitor the renal function closely. Strict input output, daily weights and 2 g sodium diet. Fluid restriction of less than 2 L/day. Transthoracic echo has been ordered and will await results. Mijares potassium greater than 4 and magnesium greater than 2.0 at all times. Uncontrolled hypertension patient on losartan 50 mg once daily at home along with beta-leif. Goal blood pressure should be 130/80 mmHg. Initial 24 hours should only reduce by 25%. Okay to hold beta-leif for now and restart it later. Cholesterol profile appears to be in normal range with normal cholesterol as well as normal LDL at 82. New onset diabetes mellitus A1c appears to be 6.3 Subclinical hypothyroidism as noted above. Management of rest of the medical conditions as per primary team and other consultants. Thank you for the consult and allowing me to participate in the care of the patient. Cardiology will continue to follow. Abdirizak Mora M.D. Interventional Cardiology
--- NOTE | 2025-05-09 11:35 | EKG_ITS ---
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
--- NOTE | 2025-05-09 11:36 | ESPR_ITS ---
<Statement entered by Tamika Alanis MD - 05/15/25 14:20> I reviewed above note and agree with findings and plans. I have also personally examined the patient with medicine team and went over assessment and plan with medical team including geotechnical intern and resident physician. Documentation for date of: 05/09/25 No overnight events. Seen examined at bedside. Patient denies any chest pain or shortness of breath. No chills or fevers reported overnight. No bowel movements since admission, senna/docusate started. Continue to diuresis. Pending echo. Hyyperbilirbuinemia noted 1.8, continue to monitor. Continue diuresis, 40 mg IV qday. Pending echo and recommendations from cardio. Patient ambulated and continue to desat to 86% on room air. Repeat EKG (05/09/2025): Sinus rhythm, R waves noted, QTc 411, T wave inversions noted in leads III, aVF and V1 through V3. No ST elevation noted. No deep Q waves noted. 05/09/2025: 1360/2350/-990; Cumulative -1510 Wt on admission 87.26--->87.26 Subjective Subjective Interval history: No acute events overnight. Patient seen and examined at bedside this AM. Reports resolution of chest pain, shortness of breath improving. Instructed nursing to attempt ambulation. Labs and vitals were reviewed. Currently on 3 L oxygen, saturating 95%. Will wean as tolerated. -990 mL, output of 2 L over 24 hours. CMP and CBC unremarkable. Will continue IV Lasix 40 mg daily, restarted losartan 50 mg daily. Pending echo and repeat EKG. Cardiology consulted. Anticipate discharge after echo results, likely tomorrow. Review of systems otherwise negative except what is mentioned above. Exam Vital Signs Temp Pulse Resp BP Pulse Ox O2 Del Method O2 Flow Rate 97.0 F 91 21 H 137/89 H 94 L Nasal Cannula 3 05/09/25 08:00 05/09/25 09:32 05/09/25 08:00 05/09/25 09:32 05/09/25 08:00 05/09/25 08:00 05/09/25 08:00 Narrative Exam Physical Exam General: Awake and in no acute distress. Conversational and non-toxic appearing. HEENT: Normocephalic, atraumatic, mucous membranes moist. Heart: Regular rate and rhythm, normal S1 and S2, grade II/IV systolic murmur. No JVD. Lungs: Clear to auscultation with no wheezing or crackles. Abdomen: Soft, nondistended, nontender, positive bowel sounds. No guarding or rebound tenderness. Neurologic: Alert and oriented x3, no gross neurological deficit, and patient able to move all 4 extremities. Extremities: Mild pitting lower extremity edema bilaterally. Skin: No rash or ecchymoses. Objective Labs 05/09/25 04:44 05/09/25 04:44 Labs: Laboratory Results - last 24 hr 05/09/25 04:44 WBC 8.7 RBC 5.14 Hgb 14.8 Hct 45.3 MCV 88 MCH 28.8 MCHC 32.7 RDW Std Deviation 52.3 H Plt Count 148 Neut % (Auto) 72 Lymph % (Auto) 17 [place] % (Auto) 8 Eos % (Auto) 2 Baso % (Auto) 0 Neut # (Auto) 6.3 Lymph # (Auto) 1.5 Price # (Auto) 0.7 Eos # (Auto) 0.2 Baso # (Auto) 0.0 Immature Gran # (Auto) 0.03 H Absolute Nucleated RBC 0.00 Immature Gran % 0 Nucleated RBC % 0 Sodium 144 Potassium 3.9 Chloride 106 Carbon Dioxide 29.1 Anion Gap 9 BUN 16 Creatinine 0.8 Estim Creat Clear Calc Not Performed. eGFR > 60 BUN/Creatinine Ratio 20 Glucose 122 H Calculated Osmolality 289 Calcium 8.6 Corrected Calcium 9.0 Phosphorus 3.0 Magnesium 1.6 Total Bilirubin 1.8 H D AST 16 ALT 31 Alkaline Phosphatase 65 Total Protein 5.6 L Albumin 3.5 Globulin 2.1 L Albumin/Globulin Ratio 1.7 Quality Measures Quality Measures none Advance care planning discussed with:: patient Assessment & Plan Assessment Current Active Medications: Generic Name Dose Route Start Last Admin Trade Name Freq PRN Reason Stop Dose Admin Acetaminophen 650 mg 05/07/25 23:19 Acetaminophen 325 Mg Tablet PO 06/06/25 23:18 Q6H PRN PAIN SCALE 1-3 (mild Furosemide 40 mg 05/09/25 09:00 05/09/25 09:32 Furosemide Inj 10 Mg/Ml 4ml Vial IVP 06/08/25 08:59 40 mg QDAY MARCO A Administration Heparin Sodium (Porcine) 5,000 unit 05/08/25 09:00 05/09/25 09:32 Heparin Sod Inj 5000 Unit/Ml Vial SC 05/22/25 08:59 5,000 unit Q12HR MARCO A Administration Magnesium Sulfate 4 gm in 50 mls @ 12.5 mls/hr 05/09/25 10:40 05/09/25 10:54 Magnesium Sulfate Ivpb IV 05/09/25 14:39 12.5 mls/hr X1 ONE Administration Losartan Potassium 50 mg 05/08/25 09:00 05/09/25 09:31 Losartan Potassium 25 Mg Tablet PO 06/07/25 08:59 50 mg QDAY MARCO A Administration Ondansetron HCl 4 mg 05/07/25 23:19 Ondansetron Inj 2 Mg/Ml Inj 2 Ml IVP 06/06/25 23:18 Q6H PRN NAUSEA OR VOMITING Protocol Plan Patient is a 84-year-old female with past medical history of hypertension presenting to the ED on 05/07 with increased shortness of breath and dyspnea on exertion, admitted for new congestive heart failure and will be treated with IV diuretics, pending echo. #Acute hypoxic respiratory failure / #New on set of CHF exacerbation Worsening shortness of breath and dyspnea on exertion on presentation, required 2L supplemental oxygen in ED. On examination, patient has a grade 2 out of 6 systolic ejection murmur (concern for possible aortic stenosis) with +2 pitting lower extremity edema bilaterally. Troponin within normal limits, BNP elevated at 1535. Chest x-ray 05/07 shows moderate vascular congestion with enlargement of the cardiac contour. 05/08: Continues to be on 2L. Lungs clear but still has mild lower extremity edema bilaterally. Repeat EKG (05/09/2025): Sinus rhythm, R waves noted, QTc 411, T wave inversions noted in leads III, aVF and V1 through V3. No ST elevation noted. No deep Q waves noted. Lipid Panel: Triglycerides 88, Cholesterol 150, HDL 50, LDL 82 ASCVD: not applicable given age. [place] heart association class III. Plan: -Echo Pending -Lasix 40 mg IV Qday -Strict I's and O's - Fluid restriction 1500 mL - Daily weights - K >4, Mg >2 ? Wean oxygen as tolerated -Work towards GDMT, pending echo ? Cardiology consulted, Dr. Mora, appreciate recommendations #Hypertension #Hypertensive urgency, resolved. History of hypertension, on losartan and carvedilol, pending med rec. Does not have programs director. Plan: -Losartan 50 mg qday -Continue to monitor blood pressure #Subclinical hypothyroidism?stable TSH elevated at 9.3. Free T4 within normal limits. No history of hypothyroidism per patient. - Consider follow up outpatient with PCP to monitor #Morbid obesity Chronic medical condition Plan: ?Follow-up outpatient with PCP #Hypernatremia, Hypervolemic?resolved #Hypomagnesemia - resolved Health Maintenance: Lines: PIV Diet: Cardiac Bowel: Senna/Docusate GI prophylaxis: Not needed DVT prophylaxis: Heparin subcu Dispo: IV diuretics for AHRF 2/2 acute CHF exacerbation, echo pending Code: Full Patient plan of care was discussed with the senior resident, Dr. Vieira, and attending physician, Dr. Alanis. Kajal Guevara, PGY-1 - The patient's plan was discussed with attending Dr. Annabelle Vieira MD PGY2 Internal Medicine
--- NOTE | 2025-05-09 11:50 | PC.SS ---
SS met with patient and dtr regarding patient's d/c plan. Pt is alert/oriented. Pt was admitted for New CHF Exacerbation. Pt confirmed demographic and contact information is correct on facesheet. Pt resides with dtrJeannie. Pt ambulates independently without assistance or DME. Pt is ok with all ADLs. Patient?s pharmacy of choice is [facility]. SS provided verbal options for d/c to home or SNF. Patient's choice is to return home upon dc. Pt named her dtrJeannie medical decision maker if she is unable. Pt is currently on 5 liters of O2. Pt does not utilize O2 at home. Jeannie Luciano will provide transportation. Pt followed up with PCP last month. D/C plan: Return home Next of Kin: Jeannie Erwin dtr, phone# [phone] or [phone] PCP: Dr. Farhat Romero from [facility] Address: Correct on facesheet
--- NOTE | 2025-05-09 12:17 | PC.SS ---
Addendum entered by Sasha Levy 05/09/25 12:48: Pt has a Mellette Plan. SS has also faxed DME order for home O2 to [facility]. Original Note: SS has sent DME order for home O2 using [facility].
--- NOTE | 2025-05-09 16:23 | PC.SS ---
SS contacted [facility]. SS spoke to Tiffany to inform her DME order for home O2 has been faxed. SS was then transferred to [employer] (a different assistance representative) and informed them pt is d/c for today. SS has provided them with patient's health insurance information. Per Rosas, he is attempting to finalize DME order and will contact pt for delivery. Pt and dtr is aware. ТАТЬЯНА has provided pt and dtr with [facility] phone# upon their request.
[2025-05-10] VITALS (8 sets, daily range): BP systolic 105–127; BP diastolic 68–81; PULSE 79–94; RESP 18–21; TEMP 36.1–36.6; O2SAT 92–95
[2025-05-10 06:42] LABS: Basophils # (Auto) 0.0 Thou/mm3 (0.0-0.2); Basophils % (Auto) 0 % (0-2.5); Eosinophils # (Auto) 0.2 Thou/mm3 (0.0-0.5); Eosinophils % (Auto) 3 % (0-10); Hematocrit 45.1 % (36.0-46.0); Hemoglobin 14.7 g/dL (12.0-16.0); Immature Granulocytes Auto 0.03 Thou/mm3 (0.00-0.00); Lymphocytes # (Auto) 1.9 Thou/mm3 (1.0-4.8); Lymphocytes % (Auto) 22 % (10-50); Mean Corpuscular HGB Conc 32.6 g/dl (31.0-37.0); Mean Corpuscular Hemoglobin 28.7 pg (25.0-35.0); Mean Corpuscular Volume 88 fL (80-100); Monocytes # (Auto) 0.7 Thou/mm3 (0.0-0.8); Monocytes % (Auto) 8 % (0-12); Neutrophils # (Auto) 5.8 Thou/mm3 (1.8-7.7); Neutrophils % (Auto) 66 % (37-80); Nucleated Red Blood Cell # 0.00 Thou/mm3 (0.00-0.00); Nucleated Red Blood Cell % 0 /100 WBC (0); Platelet Count 149 Thou/mm3 (140-440); RDW Standard Deviation 52.1 fL (36.4-46.3); Red Blood Count 5.12 Miln/mm3 (4.00-5.20); White Blood Count 8.7 Thou/mm3 (3.6-11.0)
[2025-05-10 06:57] LABS: Alanine Aminotransferase 22 U/L (10-49); Albumin, Serum 3.4 gm/dL (3.4-4.8); Albumin/Globulin Ratio 1.5 (1.2-2.2); Alkaline Phosphatase 65 U/L (46-116); Anion Gap 9 (7-16); Aspartate Amino Transferase 16 U/L (0-34); BUN/Creatinine Ratio 20 Ratio (12-20); Bilirubin,Total 1.4 mg/dL (0.3-1.2); Blood Urea Nitrogen 14 mg/dL (9-23); Calcium 8.6 mg/dL (8.3-10.6); Calcium (Corrected) 9.1 mg/dL (8.5-10.1); Carbon Dioxide 27.1 mMol/L (20.0-31.0); Chloride 106 mMol/L (98-107); Creatinine (Component) 0.7 mg/dL (0.6-1.3); Globulin 2.3 gm/dL (2.3-3.5); Glucose 114 mg/dL (74-106); Magnesium 1.9 mg/dL (1.6-2.6); Osmolality,Calculated 284 (275-295); Phosphorous 3.2 mg/dL (2.4-5.1); Potassium 4.5 mMol/L (3.4-5.1); Sodium 142 mMol/L (136-145); Total Protein 5.7 gm/dL (5.7-8.2); eGFR > 60 See Note
--- NOTE | 2025-05-10 07:45 | ESDS_ITS ---
<Statement entered by Tamika Alanis MD - 05/15/25 14:21> I reviewed above note and agree with findings and plans. I have also personally examined the patient with medicine team and went over assessment and plan with medical team including tech intern and resident physician. Planned Discharge Date 05/10/25 DS: Providers Provider Date of admission: 05/07/25 23:19 Primary care physician: Farhat Romero PA-C Admitting Provider: Jorje Strange DO Attending Provider on Admission: Abdirizak Mora MD Consults: 05/09/25 08:30 Consult to Cardiology Routine Comment: Consulting Provider: Abdirizak Mora Instructions: new CHF diagnosis and possible EKG abnormalities w/ some T wave inversion Attending Provider on DC: Tamika Alanis MD Discharging Provider: RESIDENT Tomás DS: Diagnosis Problem List Completed Was Problem List Reviewed/Reconciled?: Yes Hospital Course Hospital Course Hospital course: Summary: Patient is a 84-year-old female with limited past medical history of hypertension presenting to the ED on 05/07 with increased shortness of breath and dyspnea on exertion, admitted for acute hypoxic respiratory failure secondary to new congestive heart failure, found to have HFpEF 60-65% (04/2025) per echo. Patient discharge on Lasix and Losartan. Advised to follow up with cardiology for further management of heart failure and to resume carvedilol at a later date. ED Course: In the ED, patient presented hypertensive 169/91, heart rate of 76, respiratory rate of 22, afebrile satting 90 on room air initially but then requiring 2 L supplemental oxygen to sat 92%. Pertinent lab findings included WBC of 7.7, hemoglobin 13.5, sodium 148, chloride 111, magnesium 1.5, glucose 126, AST 20, ALT 45, alk phos 75, troponin 0.020, BNP 1535. Chest x-ray showed mild enlargement of the cardiac contour with moderate vascular congestion and EKG showed normal sinus rhythm with some T wave inversions noted on anterior and septal leads. Reason for hospitalization: Patient is a 84-year-old female with past medical history of hypertension presenting to the ED on 05/07 with increased shortness of breath and dyspnea on exertion, admitted for acute hypoxic respiratory failure secondary to new congestive heart failure based on clinical symptoms of orthopnea, dyspnea on exertion, lower extremity edema. Also supported by elevated BNP and CXR showing moderate vascular congestion with enlargement of the cardiac contour. Echo 05/07 showed Grade I diastolic dysfunction with LVEF 60-65%. Suspicious for RV pressure and volume overload. Mildly dilated RA and RV. Mildly decreased and low normal RV function. RVSP moderate to severely elevated around 70 to 75 mmHg with moderate TR. No aortic stenosis noted. IVC dilated. Trace to small pericardial effusion without any evidence of cardiac tamponade. Patient was diuresed throughout stay, net negative 1.8L. Note, dry weight upon discharge 85.049 and dry BNP 312. Continued to be on 2-3L of oxygen throughout duration of stay. Will continue Losartan 50 mg daily and Lasix 40 mg PO daily, hold carvedilol. Consider starting on SGLT-2 outpatient as A1c 05/08 is 6.3. Patient will be discharged home with oxygen, recommended dietary restrictions and to follow up with cardiology within 1 week. Discharge Recommendations: -New medication, Lasix 40 mg once daily, which is a water pill to remove extra water from your body. -HOLD Carvedilol 12.5 mg twice daily, given new onset of CHF to be restarted by cardiology -Please limit water intake to less than 2.0 liters a day and no more than 2 grams of salt per day --Please follow up with your primary care provider within one week of discharge and have your PCP make a referral to see a AUDIO EXPERIENCE EXPERT -If your symptoms worsen,please seek immediate medical attention and return to your nearest emergency room -If you do not have a primary care provider, you may follow up at the [facility] at [address] [place] [address] [address], [place] [address], Hospital Diagnoses: #Acute hypoxic respiratory failure 2/2 to new onset of CHF exacerbation #New on set of CHF exacerbation #Hypertension #Hypertensive urgency, resolved. #Subclinical hypothyroidism?stable #Morbid obesity, chronic #Hypernatremia, Hypervolemic?resolved #Hypomagnesemia - resolved Disposition: Safe discharge to home with oxygen Patient plan of care was discussed with the resident, Dr. Vieira, and attending physician, Dr. Alanis. Kajal Guevara, PGY-1 - The patient's plan was discussed with attending Dr. Annabelle Vieira MD PGY2 Internal Medicine Time Spent with Patient Time attestation: Total time spent providing and/or coordinating discharge services: Time spent: Greater than 30 minutes Exam Vital Signs Temp Pulse Resp BP Pulse Ox O2 Del Method O2 Flow Rate 97.0 F 86 19 118/68 95 Nasal Cannula 3 05/10/25 04:00 05/10/25 04:00 05/10/25 04:00 05/10/25 04:00 05/10/25 04:00 05/10/25 04:00 05/10/25 04:00 Narrative Exam Physical Exam General: Awake and in no acute distress. Conversational and non-toxic appearing. HEENT: Normocephalic, atraumatic, mucous membranes moist. Heart: Regular rate and rhythm, normal S1 and S2, grade II/IV systolic murmur. No JVD. Lungs: Clear to auscultation with no wheezing or crackles. Abdomen: Soft, nondistended, nontender, positive bowel sounds. No guarding or rebound tenderness. Neurologic: Alert and oriented x3, no gross neurological deficit, and patient able to move all 4 extremities. Extremities: Mild pitting lower extremity edema bilaterally. Skin: No rash or ecchymoses. Discharge Plan Plan Patient Disposition: HOME (Self Care) Patient condition on transfer: Stable Care Plan Goals: Instructions: -New medication, Lasix 40 mg once daily, which is a water pill to remove extra water from your body. -HOLD Carvedilol 12.5 mg twice daily, given new onset of CHF to be restarted by cardiology -Please limit water intake to less than 2.0 liters a day and no more than 2 grams of salt per day --Please follow up with your primary care provider within one week of discharge and have your PCP make a referral to see a AUDIO EXPERIENCE EXPERT -If your symptoms worsen,please seek immediate medical attention and return to your nearest emergency room -If you do not have a primary care provider, you may follow up at the [facility] at [facility] [address], [place] [address], Prescriptions/Referrals Prescriptions/Med Rec: New furosemide [Lasix] 40 mg tablet 40 mg PO QDAY 30 Days Qty: 30 0RF Continued famotidine 20 mg tablet 20 mg PO QDAY losartan 50 mg tablet 50 mg PO QDAY Held carvedilol 12.5 mg tablet 12.5 mg PO BID Hold Instructions: Resume on 05/19/25. Rx Instructions: must administer with a meal/food Referrals: Abdirizak Mora MD [Referring Provider] - Farhat Romero PA-C [Primary Care Provider] - Patient/Caregiver Discharge Instructions Education Materials: Heart Failure Print Language: Fijian Stand Alone Forms: Carmen Award Info., Patient Portal Info Letter Discharge Order Discharge Orders: Discharge (Routine); Ordered 05/10/25 Ordered By: Linda Vieira Quality Discharge Quality Measures VTE prophylaxis
--- NOTE | 2025-05-10 08:32 | PC.SS ---
Addendum entered by DONNY Wright 05/10/25 14:22: SS update: per RN, 02 has not been delivered as of yet. Addendum entered by DONNY Wright 05/10/25 10:08: SS follow up: spoke with Rochelle from [employer], who informs their team will contact the patient and discharging team to ensure DME delivery for today. No ETA provided at this time. Original Note: SS follow up: attempted contact with [employer] to identify the status of the O2 DME delivery. Live sales representative cash registers answered the call and took a message, she informed the DME company opens at 9am to follow up once they are open.
[2025-05-10] MEDS: LOSARTAN POTASSIUM 25 MG TABLET 50 MG PO (09:42)
[2025-05-10] MEDS: FUROSEMIDE INJ 10 MG/ML 4ML VIAL 40 MG IVP (09:43)
[2025-05-10] MEDS: HEPARIN SOD INJ 5000 UNIT/ML VIAL SC (09:44)
[2025-05-10] MEDS: Magnesium Sulfate 2 GM Ivpb 2 GM/50 ML BAG IV (09:59)
--- NOTE | 2025-05-10 11:40 | PC.SS ---
CHARGE LOADER spoke to pt. to confirm D/c plan. CHARGE LOADER informed pt. that 02 will be delivered today however no ETA was provided by [employer]. Pt. stated that upon d/c daughter Jeannie Norton will provide transportation back home.
[2025-05-10 13:47] LABS: B-Type Natriuretic Peptide 312 pg/mL (0-100)
--- NOTE | 2025-05-10 14:28 | PC.SS ---
SS update: Pt. waiting on oxygen, HUMID SYSTEM OPERATOR spoke to [facility] they stated oxygen will be delivered between 1-6pm.
--- NOTE | 2025-05-10 16:10 | PC.NURSE ---
Spoke w/ Dr. Guevara re: Lasix IVP order. Informed her that pt's IV has been discontinued for pt's discharge home. Dr. Guevara will change the order to PO so pt can have dose before going home. Noted.
--- NOTE | 2025-05-10 16:25 | PC.NURSE ---
Pt discharged home via private vehicle accompanied by daughter; pt transported to main entrance via w/c accompanied by RN and PIPE FITTER GAS PIPE. IV dc'd w/o difficulty; pt tolerated well. D/C inst given to pt and daughter using [facility] hospice nurse practitioner Cierra #[id number] understanding expressed and questions answered.
--- NOTE | 2025-05-10 16:41 | ESPR_ITS ---
Documentation for date of: 05/10/25 Subjective Subjective Interval history: The patient was seen and examined at the bedside this morning. She reported doing much better. She was saturating on 2 L of NC. Physical exam was still significant for mild right basilar crackles, but no pedal edema. The patient has been diuresed about 2 L in past 2 days. Her vital signs been stable with blood pressure 116/76. CBC WNL, CMP revealed total bilirubin of 1.4, but no abdominal tenderness or pain, BNP decreased to 312, potassium 4.5 and magnesium 1.9. Recommended to maintain magnesium and potassium greater than 2 and 4 respectively at all the time During discharge, patient should be discharged on Lasix 40 mg daily. Recommended to follow-up with professor of latin american studies Dr. Mora within 1 week of discharge. Exam Vital Signs Temp Pulse Resp BP Pulse Ox O2 Del Method O2 Flow Rate 97.8 F 83 19 116/76 94 L Nasal Cannula 2 05/10/25 16:00 05/10/25 16:19 05/10/25 16:00 05/10/25 16:19 05/10/25 16:00 05/10/25 16:00 05/10/25 16:00 Narrative Exam General: Elderly, obese, cooperative female, no acute distress, Alert and Oriented x 3 HEENT: Moist mucous membranes, oropharynx clear Neck: Supple, No masses, No JVD CVS: S1S2 Regular rate and rhythm, No murmurs, rubs or gallops Lungs: Right basilar crackles appreciated, no wheeze or rhonchi Abd: Soft, NT/ND, +BS, no organomegaly Ext: No edema, warm and well perfused Skin: No rash Psych: Appropriate mood and affect Objective Labs 05/10/25 06:05 05/10/25 06:05 Labs: Laboratory Results - last 24 hr 05/10/25 06:05 WBC 8.7 RBC 5.12 Hgb 14.7 Hct 45.1 MCV 88 MCH 28.7 MCHC 32.6 RDW Std Deviation 52.1 H Plt Count 149 Neut % (Auto) 66 Lymph % (Auto) 22 [place] % (Auto) 8 Eos % (Auto) 3 Baso % (Auto) 0 Neut # (Auto) 5.8 Lymph # (Auto) 1.9 [place] # (Auto) 0.7 Eos # (Auto) 0.2 Baso # (Auto) 0.0 Immature Gran # (Auto) 0.03 H Absolute Nucleated RBC 0.00 Immature Gran % 0 Nucleated RBC % 0 Sodium 142 Potassium 4.5 D Chloride 106 Carbon Dioxide 27.1 Anion Gap 9 BUN 14 Creatinine 0.7 Estim Creat Clear Calc Not Performed. eGFR > 60 BUN/Creatinine Ratio 20 Glucose 114 H Calculated Osmolality 284 Calcium 8.6 Corrected Calcium 9.1 Phosphorus 3.2 Magnesium 1.9 Total Bilirubin 1.4 H AST 16 ALT 22 Alkaline Phosphatase 65 B-Natriuretic Peptide 312 H Total Protein 5.7 Albumin 3.4 Globulin 2.3 Albumin/Globulin Ratio 1.5 Quality Measures Quality Measures VTE prophylaxis Advance care planning discussed with:: patient and child Assessment & Plan Assessment Current Active Medications: Generic Name Dose Route Start Last Admin Trade Name Freq PRN Reason Stop Dose Admin Acetaminophen 650 mg 05/07/25 23:19 Acetaminophen 325 Mg Tablet PO 06/06/25 23:18 Q6H PRN PAIN SCALE 1-3 (mild Furosemide 40 mg 05/09/25 09:00 05/10/25 09:43 Furosemide Inj 10 Mg/Ml 4ml Vial IVP 06/08/25 08:59 40 mg QDAY MARCO A Administration Heparin Sodium (Porcine) 5,000 unit 05/08/25 09:00 05/10/25 09:44 Heparin Sod Inj 5000 Unit/Ml Vial SC 05/22/25 08:59 5,000 unit Q12HR MARCO A Administration Losartan Potassium 50 mg 05/08/25 09:00 05/10/25 09:42 Losartan Potassium 25 Mg Tablet PO 06/07/25 08:59 50 mg QDAY MARCO A Administration Ondansetron HCl 4 mg 05/07/25 23:19 Ondansetron Inj 2 Mg/Ml Inj 2 Ml IVP 06/06/25 23:18 Q6H PRN NAUSEA OR VOMITING Protocol Sennosides 1 tab 05/09/25 17:35 Senna/Docusate Sod 1 Tab Tablet PO 06/08/25 17:34 QDAY PRN CONSTIPATION Protocol Plan The patient is not 84-year-old female with significant past medical history of hypertension presented to ED on 05/07/2025 with chief complaint of worsening of SOB and bilateral leg edema. The patient reported that she started having mild SOB 4 weeks ago, associated with mild bilateral lower limb edema. Cardiology consultation was done for concern regarding acute exacerbation of new onset CHF. #New onset CHF exacerbation- #Moderate to severe PAH Patient presented with chief complaint of worsening of SOB, and bilateral lower limb edema for the past 4 weeks. Reported orthopnea During presentation, physical exam was significant for bibasilar crackles, including 2+ lower limb pitting edema - Continue the patient with Lasix 40 Mg IV daily - Strict ins and outs - Low-sodium diet - Fluid restriction 1500 cc/day incorporated in diet - TTE on 05/09/2025 revealed: Normal left ventricular size and wall thickness. Grade I diastolic dysfunction. Estimated at 60-65%. IVS flattened in systole and diastole in short axis consistent with RV pressure and volume overload. Mildly dilated RA and RV. Mildly decreased and low normal RV function. RVSP moderate to severely elevated around 70 to 75 mmHg. Moderate TR Mild aortic valve sclerosis without stenosis. Mild PI. Trace MR. Mild MAC. IVC dilated. Trace to small pericardial effusion without any evidence of cardiac tamponade - Maintain potassium and magnesium greater than 4 and 2 respectively all the time -During discharge the patient's IV Lasix can be switched to oral Lasix 40 Mg daily #Hypertension #Subclinical hypothyroidism Continue with home losartan 50 Mg daily Thank you for cardiology consultation. We appreciate the opportunity to participate in this patient care. Will continue to follow-up on this patient. Recommended to follow-up with Dr. Morgan MD within 1 week of discharge The patient's management plan was discussed with my attending physician MD Milton Phan MD, PGY3 Attending Provider Attestation/Addendum I have personally seen and examined the patient separately on the above date of service and discussed the plan of care with the resident. I reviewed the resident Dr. Milton Yanez consultation progress note and agree with the resident findings and plan in the note above and have also edited the documentation to reflect my findings and plan. Abdirizak Mora M.D. Interventional Cardiology
== END 2025-05-10 16:25 | disposition home or self-care (01) | DRG 194 ==
LOC: SERX 23:07 → SERHOLD 23:36 → S3NX 05-08 01:21
PROVIDERS: Physician Assistant Medical; Admitting Provider Student in an Organized Health Care Education/Training Program; Emergency Provider Emergency Medicine; PCP Family Medicine; Visit Provider Internal Medicine Cardiovascular Disease
DX: I11.0 Hypertensive heart disease with heart failure (principal); I50.33 Acute on chronic diastolic (congestive) heart failure; J96.01 Acute respiratory failure with hypoxia; E66.01 Morbid (severe) obesity due to excess calories; I16.0 Hypertensive urgency; E87.0 Hyperosmolality and hypernatremia; E83.42 Hypomagnesemia; E03.8 Other specified hypothyroidism; K21.9 Gastro-esophageal reflux disease without esophagitis; E11.9 Type 2 diabetes mellitus without complications; M19.90 Unspecified osteoarthritis, unspecified site; I08.2 Rheumatic disorders of both aortic and tricuspid valves; I27.21 Secondary pulmonary arterial hypertension; Z79.899 Other long term (current) drug therapy
CPT/HCPCS: 36415; 71045; 80053; 80061; 83036; 83735; 83880; 84100; 84439; 84443; 84484; 85025; 93005; 93225; 93306; 96372; 96374; 96375; 96376; J0360; J1644; J1938; J3475; A9270